=== PATIENT | female | born 1990 | race American Indian/Alaskan Native ===

== ENCOUNTER 2018-07-08 15:46 | Emergency (ER) | payer SELFPAY ==
--- NOTE | 2018-07-08 18:25 | XRay Report ---
FINAL REPORT EXAM: XR SHOULDER 2+V RT HISTORY: PAIN/ SWELLING TECHNIQUE: Three views right shoulder Comparison: None FINDINGS: Normal bony mineralization. No fracture or dislocation. The imaged right lung is clear. Imaged cervical spine is unremarkable. IMPRESSION: No acute fracture or dislocation.
[2018-07-08] MEDS ORDERED: MOTRIN PO ONE (21:57)
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
[2018-07-09 05:10] VITALS: BP 106/75
== END 2018-07-08 22:10 | disposition home or self-care (01) ==
LOC: ED 15:46
DX: S46.911A Strain of unspecified muscle, fascia and tendon at shoulder and upper arm level, right arm, initial encounter (principal); F17.200 Nicotine dependence, unspecified, uncomplicated; Y08.89XA Assault by other specified means, initial encounter; Y93.89 Activity, other specified; Y99.8 Other external cause status; Y92.89 Other specified places as the place of occurrence of the external cause

== ENCOUNTER 2018-07-12 13:06 | Emergency (ER) | payer OTHER ==
[2018-07-12 13:27] VITALS: BP 106/72
[2018-07-12] MEDS ORDERED: MOTRIN PO ONE (16:19)
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
== END 2018-07-12 19:08 | disposition home or self-care (01) ==
LOC: ED 13:06
DX: S33.5XXA Sprain of ligaments of lumbar spine, initial encounter (principal); S16.1XXA Strain of muscle, fascia and tendon at neck level, initial encounter; M25.551 Pain in right hip; F17.200 Nicotine dependence, unspecified, uncomplicated; V89.2XXA Person injured in unspecified motor-vehicle accident, traffic, initial encounter; Y93.89 Activity, other specified; Y92.89 Other specified places as the place of occurrence of the external cause; Y99.8 Other external cause status
CPT/HCPCS: 72100

== ENCOUNTER 2019-07-27 13:05 | Emergency (ER) | payer SELFPAY ==
--- NOTE | 2019-07-27 13:47 | Event Note ---
ED Screening Note Date of service: 07/27/19 Time: 13:42 ED Screening Note: This is a 28 y.o. F. that presents to the ER with pelvic pain, n/v, and constipation for 3 days. Patient went to [facility] and had a normal US yesterday and discharged home. Patient states she can't keep anything down. Reports pain as 10/10, stabbing intensity that is constant. This initial assessment/diagnostic orders/clinical plan/treatment(s) is/are subject to change based on patients health status, clinical progression and re- assessment by fellow clinical providers in the ED. Further treatment and workup at subsequent clinical providers discretion. Patient/guardian urged not to elope from the ED as their condition may be serious if not clinically assessed and managed. Initial orders include: Labs and CT of abdomen and pelvis
[2019-07-27] MEDS ORDERED: ONDANSETRON 4 MG/2 ML INJ IV ONE (14:07)
[2019-07-27] MEDS ORDERED: SODIUM CHLORIDE 0.9% 1000 ML 1,000 ML IV ONE (14:07)
[2019-07-27] MEDS ORDERED: MORPHINE 4 MG/1 ML INJ IV ONE (14:07)
[2019-07-27 14:33] LABS: Basophils # (Auto) 0.1 K/mm3 (0.0-0.1); Basophils % (Auto) 0.6 % (0.0-1.8); Eosinophils % (Auto) 0.1 % (0.0-4.3); Hemoglobin 13.6 gm/dl (10.1-14.3); Lymphocytes # (Auto) 1.4 K/mm3 (1.2-5.4); Lymphocytes % (Auto) 11.5 % (13.4-35.0); Mean Corpuscular HGB Conc 34 % (30-34); Mean Corpuscular Volume 95 fl (79-97); Monocytes # (Auto) 0.9 K/mm3 (0.0-0.8); Monocytes % (Auto) 7.6 % (0.0-7.3); Platelet Count 360 K/mm3 (140-440); Red Blood Count 4.24 M/mm3 (3.65-5.03); Red Cell Distribution Width 13.2 % (13.2-15.2)
[2019-07-27 14:55] LABS: Alanine Aminotransferase 57 units/L (7-56); Albumin 4.6 g/dL (3.9-5); BUN/Creatinine Ratio 13; Blood Urea Nitrogen 9 mg/dL (7-17); Calcium 9.4 mg/dL (8.4-10.2); Hemolysis Index 2
--- NOTE | 2019-07-27 15:41 | Cat Scan Report ---
CT OF THE ABDOMEN AND PELVIS WITH INTRAVENOUS CONTRAST INDICATION / CLINICAL INFORMATION: Lower abdominal pain for 2 days. TECHNIQUE: The patient received 100 cc Omnipaque [address] scans at this location are performed using CT dose reduction for ALARA by means of automated exposure control. COMPARISON: None available. FINDINGS: ABDOMEN: There is a small accessory spleen. The liver, gallbladder, bile ducts, pancreas, adrenal gla nds, kidneys and bowel demonstrate no significant abnormality. No adenopathy is seen. The lung bases are clear. PELVIS: The distal ureters and urinary bladder are normal. The uterus and adnexal regions are unremar kable. A normal retrocecal appendix is present. There is no evidence of diverticulitis. No abnormal m ass or fluid collection is seen. I do not identify a hernia. No acute osseous abnormality is identifi ed. IMPRESSION: No acute abnormality. Signer Name: Alex Rowell MD Signed: 07/27/2019 3:36 PM Workstation Name: [id number]
--- NOTE | 2019-07-27 17:23 | Emergency Department Report ---
ED Abdominal Pain HPI - General Chief Complaint: Nausea/Vomiting/Diarrhea Stated Complaint: LOWER ABD PAIN/VOMTING/NAUSEA Time Seen by Provider: 07/27/19 13:33 Source: patient Mode of arrival: Ambulatory Limitations: No Limitations - History of Present Illness Initial Comments: This is a 28-year-old female nontoxic, well nourished in appearance, no acute signs of distress presents to the ED with c/o of nausea and vomiting and abdominal pain 1 week. Patient describes vomiting as food content and yellow gastric acid. Patient describes abdominal pain as cramping and aching with level of 8/10 diffuse. Patient denies any vaginal discharge. Denies any flank pain. Patient denies chest pain, short of breath, fever, chills, headache, stiff neck, numbness or tingling. Patient denies any diarrhea or constipation. Patient denies any recent travels. Patient denies any allergies. Patient denies any PMH. MD Complaint: abdominal pain -: week(s) (1) Location: diffuse Radiation: none Migration to: no migration Severity: mild Severity scale (0 -10): 8 Quality: cramping, aching Consistency: constant Improves With: nothing Worsens With: nothing Associated Symptoms: nausea, vomiting. denies: diarrhea, fever, chills, constipation, dysuria, hematemesis, hematochezia, melena, hematuria, anorexia, syncope - Related Data Previous Rx's Medication Instructions Recorded Last Taken Type Acetaminophen/Codeine [Tylenol 1 tab PO Q6H PRN #12 tab 07/08/18 Unknown Rx /Codeine # 3 tab] Ibuprofen [Motrin] 600 mg PO Q8H PRN #30 tablet 07/08/18 Unknown Rx Cyclobenzaprine [Flexeril 10mg] 10 mg PO Q12H PRN #14 tablet 07/12/18 Unknown Rx Ibuprofen [Motrin] 600 mg PO Q8H PRN #12 tablet 07/12/18 Unknown Rx Acetaminophen/Codeine [Tylenol 1 tab PO Q6H PRN #12 tab 07/27/19 Unknown Rx /Codeine # 3 tab] Ondansetron [Zofran Odt] 4 mg PO Q8HR PRN #20 tab.rapdis 07/27/19 Unknown Rx Allergies Allergy/AdvReac Type Severity Reaction Status Date / Time No Known Allergies Allergy Verified 07/12/18 13:28 ED Review of Systems ROS: Stated complaint: LOWER ABD PAIN/VOMTING/NAUSEA Other details as noted in HPI Constitutional: denies: chills, fever Eyes: denies: eye pain, eye discharge, vision change ENT: denies: ear pain, throat pain Respiratory: denies: cough, shortness of breath, wheezing Cardiovascular: denies: chest pain, palpitations Endocrine: no symptoms reported Gastrointestinal: abdominal pain, nausea, vomiting. denies: diarrhea Genitourinary: denies: urgency, dysuria, discharge Musculoskeletal: denies: back pain, joint swelling, arthralgia Skin: denies: rash, lesions Neurological: denies: headache, weakness, paresthesias Psychiatric: denies: anxiety, depression Hematological/Lymphatic: denies: easy bleeding, easy bruising ED Past Medical Hx - Past Medical History Previous Medical History?: No - Surgical History Past Surgical History?: No - Social History Smoking Status: Current Every Day Smoker Substance Use Type: Alcohol, Marijuana - Medications Home Medications: Home Medications Medication Instructions Recorded Confirmed Last Taken Type Acetaminophen/Codeine [Tylenol 1 tab PO Q6H PRN #12 tab 07/08/18 Unknown Rx /Codeine # 3 tab] Ibuprofen [Motrin] 600 mg PO Q8H PRN #30 tablet 07/08/18 Unknown Rx Cyclobenzaprine [Flexeril 10mg] 10 mg PO Q12H PRN #14 tablet 07/12/18 Unknown Rx Ibuprofen [Motrin] 600 mg PO Q8H PRN #12 tablet 07/12/18 Unknown Rx Acetaminophen/Codeine [Tylenol 1 tab PO Q6H PRN #12 tab 07/27/19 Unknown Rx /Codeine # 3 tab] Ondansetron [Zofran Odt] 4 mg PO Q8HR PRN #20 tab.rapdis 07/27/19 Unknown Rx ED Physical Exam - General Limitations: No Limitations General appearance: alert, in no apparent distress - Head Head exam: Present: atraumatic, normocephalic - Eye Eye exam: Present: normal appearance - Neck Neck exam: Present: normal inspection, full ROM. Absent: tenderness, mening ismus, lymphadenopathy - Respiratory Respiratory exam: Present: normal lung sounds bilaterally. Absent: respiratory distress, wheezes, rales, rhonchi, stridor, chest wall tenderness, accessory muscle use, decreased breath sounds, prolonged expiratory - Cardiovascular Cardiovascular Exam: Present: regular rate, normal rhythm, normal heart sounds. Absent: bradycardia, tachycardia, irregular rhythm, systolic murmur, diastolic murmur, rubs, gallop - GI/Abdominal GI/Abdominal exam: Present: soft, tenderness (diffuse), normal bowel sounds. Absent: distended, guarding, rebound, rigid, diminished bowel sounds - Extremities Exam Extremities exam: Present: normal inspection, full ROM - Back Exam Back exam: Present: normal inspection, full ROM. Absent: tenderness, CVA tenderness (R), CVA tenderness (L), muscle spasm, paraspinal tenderness, vertebral tenderness, rash noted - Neurological Exam Neurological exam: Present: alert, oriented X3, normal gait - Psychiatric Psychiatric exam: Present: normal affect, normal mood - Skin Skin exam: Present: warm, dry, intact, normal color. Absent: rash ED Course Vital Signs 07/27/19 07/27/19 13:06 14:42 Temperature 98.6 F Pulse Rate 84 Respiratory 18 18 Rate Blood Pressure 126/60 O2 Sat by Pulse 99 Oximetry - Reevaluation(s) Reevaluation #1: 07/27/19 17:21 Patient is speaking in full sentences with no signs of distress noted. ED Medical Decision Making - Lab Data Result diagrams: 07/27/19 13:59 07/27/19 13:59 - Medical Decision Making This is a 28-year-old female that presents with abdominal pain and nausea vomiting. Patient is stable and was examined by me. There is no abdominal tenderness. Negative signs of symptoms of appendicitis. Labs obtained. UA obtained. CT of abdomen obtained and dictated by the radiologist. Patient is notified of the report with no questions noted by the patient. Vital signs are stable prior to discharge. Patient received medical treatment in the ED which patient stated symptoms has resovled and subsided. Was instructed note to operate any machinery due to possible drowsiness and stated someone will drive the patient home. A by mouth challenge has been obtained and patient tolerated well with no nausea vomiting. Patient was also instructed to Follow-up with a primary care doctor in 3-5 days or if symptoms worsen and continue return to emergency room as soon as possible. At time of discharge, the patient does not seem toxic or ill in appearance. No acute signs of distress noted. Patient agrees to discharge treatment plan of care. No further questions noted by the patient. Critical care attestation.: If time is entered above; I have spent that time in minutes in the direct care of this critically ill patient, excluding procedure time. ED Disposition Clinical Impression: Abdominal pain, Nausea & vomiting Disposition: DC-01 TO HOME OR SELFCARE Is pt being admited?: No Does the pt Need Aspirin: No Condition: Stable Instructions: Acetaminophen/Codeine (By mouth), Acute Nausea and Vomiting (ED), Acute Abdominal Pain (ED) Additional Instructions: Follow-up with a primary care doctor in 3-5 days or if symptoms worsen and continue return to emergency room as soon as possible. Do not operate any machinery while taking Tylenol with codeine as this may cause drowsiness. Prescriptions: Acetaminophen/Codeine [Tylenol /Codeine # 3 tab] 1 tab PO Q6H PRN #12 tab PRN Reason: Pain , Severe (7-10) Ondansetron [Zofran Odt] 4 mg PO Q8HR PRN #20 tab.rapdis PRN Reason: Pain , Severe (7-10) Referrals: PRIMARY MD ASHLEE [Primary Care Provider] - 3-5 Days RAFA ZIEGLER MD [Staff Physician] - 3-5 Days [facility] [Outside] - 3-5 Days [facility] [Outside] - 3-5 Days Forms: Work/School Release Form(ED)
[2019-07-27 17:41] LABS: Bilirubin,Urine NEG (Negative); Blood,Urine LG (Negative); Color,Urine Red (Yellow); Urobilinogen,Urine < 2.0 mg/dL (<2.0)
[2019-07-27 17:42] LABS: RBC,Urine > 182.0 /HPF (0.0-6.0)
[2019-07-27 18:08] VITALS: BP 132/80
== END 2019-07-27 18:08 | disposition home or self-care (01) ==
LOC: ED 13:05
DX: R11.2 Nausea with vomiting, unspecified (principal); R10.84 Generalized abdominal pain; F17.200 Nicotine dependence, unspecified, uncomplicated; F12.10 Cannabis abuse, uncomplicated; Z79.1 Long term (current) use of non-steroidal anti-inflammatories (NSAID); Z79.899 Other long term (current) drug therapy
CPT/HCPCS: 36415; 74177; 80053; 81001; 83690; 84703; 85025; 96361; 96374; 96375; 99284; J2270; J2405; J7030; Q9967

== ENCOUNTER 2019-07-28 10:18 | Emergency (ER) | payer SELFPAY ==
--- NOTE | 2019-07-28 12:53 | Emergency Department Report ---
Vomiting/Diarrhea - [facility] Chief Complaint: Abdominal Pain Stated Complaint: VOMIT/STOMACH PAIN/DIZZY Time Seen by Provider: 07/28/19 12:45 Severity: mild Nausea/Vomiting Severity: Mild ED Review of Systems ROS: Stated complaint: VOMIT/STOMACH PAIN/DIZZY Other details as noted in HPI ED Past Medical Hx - Past Medical History Previous Medical History?: No - Surgical History Past Surgical History?: No - Social History Smoking Status: Never Smoker Substance Use Type: None - Medications Home Medications: Home Medications Medication Instructions Recorded Confirmed Last Taken Type Acetaminophen/Codeine [Tylenol 1 tab PO Q6H PRN #12 tab 07/08/18 Unknown Rx /Codeine # 3 tab] Ibuprofen [Motrin] 600 mg PO Q8H PRN #30 tablet 07/08/18 Unknown Rx Cyclobenzaprine [Flexeril 10mg] 10 mg PO Q12H PRN #14 tablet 07/12/18 Unknown Rx Ibuprofen [Motrin] 600 mg PO Q8H PRN #12 tablet 07/12/18 Unknown Rx Acetaminophen/Codeine [Tylenol 1 tab PO Q6H PRN #12 tab 07/27/19 Unknown Rx /Codeine # 3 tab] Ondansetron [Zofran Odt] 4 mg PO Q8HR PRN #20 tab.rapdis 07/27/19 Unknown Rx Vomiting Diarrhea Exam - Exam General: Vital signs noted. No distress. Alert and acting appropriately. Neurologic: Alert and oriented, no deficits. Musculoskeletal: Unremarkable. ED Course Vital Signs 07/28/19 07/28/19 10:32 12:05 Temperature 98.8 F 98.8 F Pulse Rate 69 69 Respiratory 22 22 Rate Blood Pressure 123/76 Blood Pressure 123/76 [Right] O2 Sat by Pulse 100 100 Oximetry Critical care attestation.: If time is entered above; I have spent that time in minutes in the direct care of this critically ill patient, excluding procedure time. ED Disposition Condition: Stable Instructions: Abdominal Pain (ED) Referrals: PRIMARY CARE, [Primary Care Provider] - 3-5 Days
[2019-07-28] MEDS ORDERED: HALOPERIDOL LACTATE 5 MG/1 ML INJ IM ONE (12:57)
--- NOTE | 2019-07-28 12:59 | Emergency Department Report ---
ED Abdominal Pain HPI - General Chief Complaint: Abdominal Pain Stated Complaint: VOMIT/STOMACH PAIN/DIZZY Time Seen by Provider: 07/28/19 12:45 Source: patient Mode of arrival: Ambulatory Limitations: No Limitations - History of Present Illness Initial Comments: This 28-year-old female with a history of PCOS as presents to ED complaining of abdominal pain with nausea vomiting and for the past 4 days. Patient was revealed related here yesterday and had a full workup with normal findings. Patient was also evaluated that day before at [facility] with normal findings.Patient states that pain is localized to her lower abdominal and upper abdominal region. Patient is complaining of nausea vomiting for the past couple of days and inability to keep down food. She denies diarrhea, fevers, chills, any urinary symptoms. Patient isn't is some distress crying stating that she is having abdominal pain. MD Complaint: abdominal pain Severity scale (0 -10): 10 - Related Data Previous Rx's Medication Instructions Recorded Last Taken Type Acetaminophen/Codeine [Tylenol 1 tab PO Q6H PRN #12 tab 07/08/18 Unknown Rx /Codeine # 3 tab] Ibuprofen [Motrin] 600 mg PO Q8H PRN #30 tablet 07/08/18 Unknown Rx Cyclobenzaprine [Flexeril 10mg] 10 mg PO Q12H PRN #14 tablet 07/12/18 Unknown Rx Ibuprofen [Motrin] 600 mg PO Q8H PRN #12 tablet 07/12/18 Unknown Rx Acetaminophen/Codeine [Tylenol 1 tab PO Q6H PRN #12 tab 07/27/19 Unknown Rx /Codeine # 3 tab] Ondansetron [Zofran Odt] 4 mg PO Q8HR PRN #20 tab.rapdis 07/27/19 Unknown Rx traMADol [Ultram 50 MG tab] 50 mg PO Q6HR PRN #15 tablet 07/28/19 Unknown Rx Allergies Allergy/AdvReac Type Severity Reaction Status Date / Time No Known Allergies Allergy Verified 07/12/18 13:28 ED Review of Systems ROS: Stated complaint: VOMIT/STOMACH PAIN/DIZZY Other details as noted in HPI Comment: All other systems reviewed and negative ED Past Medical Hx - Past Medical History Previous Medical History?: No - Surgical History Past Surgical History?: No - Social History Smoking Status: Never Smoker Substance Use Type: None - Medications Home Medications: Home Medications Medication Instructions Recorded Confirmed Last Taken Type Acetaminophen/Codeine [Tylenol 1 tab PO Q6H PRN #12 tab 07/08/18 Unknown Rx /Codeine # 3 tab] Ibuprofen [Motrin] 600 mg PO Q8H PRN #30 tablet 07/08/18 Unknown Rx Cyclobenzaprine [Flexeril 10mg] 10 mg PO Q12H PRN #14 tablet 07/12/18 Unknown Rx Ibuprofen [Motrin] 600 mg PO Q8H PRN #12 tablet 07/12/18 Unknown Rx Acetaminophen/Codeine [Tylenol 1 tab PO Q6H PRN #12 tab 07/27/19 Unknown Rx /Codeine # 3 tab] Ondansetron [Zofran Odt] 4 mg PO Q8HR PRN #20 tab.rapdis 07/27/19 Unknown Rx traMADol [Ultram 50 MG tab] 50 mg PO Q6HR PRN #15 tablet 07/28/19 Unknown Rx ED Physical Exam - General Limitations: No Limitations General appearance: alert, in no apparent distress - Head Head exam: Present: atraumatic, normocephalic - Eye Eye exam: Present: normal appearance - ENT ENT exam: Present: mucous membranes moist - Neck Neck exam: Present: normal inspection - Respiratory Respiratory exam: Present: normal lung sounds bilaterally. Absent: respiratory distress - Cardiovascular Cardiovascular Exam: Present: regular rate, normal rhythm. Absent: systolic murmur, diastolic murmur, rubs, gallop - GI/Abdominal GI/Abdominal exam: Present: soft, normal bowel sounds. Absent: distended, tenderness, guarding, mass - Extremities Exam Extremities exam: Present: normal inspection - Back Exam Back exam: Present: normal inspection - Neurological Exam Neurological exam: Present: alert, oriented X3 - Psychiatric Psychiatric exam: Present: normal affect, normal mood - Skin Skin exam: Present: warm, dry, intact, normal color. Absent: rash ED Course Vital Signs 07/28/19 07/28/19 07/28/19 10:32 12:05 16:29 Temperature 98.8 F 98.8 F Pulse Rate 69 69 72 Respiratory 22 22 18 Rate Blood Pressure 123/76 Blood Pressure 123/76 120/70 [Right] O2 Sat by Pulse 100 100 100 Oximetry ED Medical Decision Making - Lab Data Result diagrams: 07/28/19 15:37 07/28/19 13:56 - Medical Decision Making 28-year-old female presents with abdominal pain most likely from PCOS or gastroenteritis. CBC, CMP ordered today, all labs within normal limits. CT abdomen and pelvis from yesterday was normal. Patient received 1 L normal saline, Rocephin due to result of urinary findings from yesterday. She also received 5 mg of Haldol IM as well as Reglan for pain and nausea. Patient reports feeling much better prior to discharge. Discussed need to follow-up with head sugar reprocess operator. Vital signs are normal patient is in no acute distress. Critical care attestation.: If time is entered above; I have spent that time in minutes in the direct care of this critically ill patient, excluding procedure time. ED Disposition Clinical Impression: Abdominal pain, History of PCOS Disposition: TO HOME OR SELFCARE Is pt being admited?: No Does the pt Need Aspirin: No Condition: Stable Instructions: Polycystic Ovarian Syndrome (ED), Chronic Pelvic Pain in Women (ED), Abdominal Pain (ED) Additional Instructions: Make sure to follow up with the head sugar reprocess operator as discussed. Take all your medications as you've been prescribed. If you have any worsening symptoms or develop new symptoms please return to ED immediately. Prescriptions: traMADol [Ultram 50 MG tab] 50 mg PO Q6HR PRN #15 tablet PRN Reason: Pain Referrals: PRIMARY CARE, [Primary Care Provider] - 3-5 Days [facility] [Provider Group] - 3-5 Days [facility] [Provider Group] - 3-5 Days [facility] [Provider Group] - 3-5 Days Forms: Accompanied Note, Work/School Release Form(ED) Time of Disposition: 16:13
[2019-07-28] MEDS ORDERED: SODIUM CHLORIDE 0.9% 1000 ML 1,000 ML IV ONE (13:01)
[2019-07-28] MEDS ORDERED: cefTRIAXone/NS 1 GM/50 ML 0 GM/0 ML BAG IV ONE (14:28)
[2019-07-28] MEDS ORDERED: METOCLOPRAMIDE 10 MG/2 ML INJ ONE (14:54)
[2019-07-28 14:55] LABS: Alanine Aminotransferase 58 units/L (7-56); Albumin 4.1 g/dL (3.9-5); BUN/Creatinine Ratio 10; Blood Urea Nitrogen 8 mg/dL (7-17); Calcium 8.6 mg/dL (8.4-10.2); Hemolysis Index 30
[2019-07-28] MEDS ORDERED: METOCLOPRAMIDE 10 MG/2 ML INJ IV ONE (14:58)
[2019-07-28 15:49] LABS: Hematocrit 37.8 % (30.3-42.9); Mean Corpuscular HGB Conc 34 % (30-34); Mean Corpuscular Volume 93 fl (79-97); Platelet Count 342 K/mm3 (140-440); Red Blood Count 4.05 M/mm3 (3.65-5.03); Red Cell Distribution Width 13.2 % (13.2-15.2)
[2019-07-28 16:30] VITALS: BP 120/70
== END 2019-07-28 16:29 | disposition home or self-care (01) ==
LOC: ED 10:18
DX: R10.84 Generalized abdominal pain (principal); R11.2 Nausea with vomiting, unspecified; Z79.899 Other long term (current) drug therapy
CPT/HCPCS: 36415; 80053; 85025; 96365; 96367; 96372; 96375; 99283; J0696; J1630; J2765; J7030

== ENCOUNTER 2019-07-30 05:26 | Emergency (ER) | payer SELFPAY ==
[2019-07-30 06:00] LABS: Basophils # (Auto) 0.1 K/mm3 (0.0-0.1); Basophils % (Auto) 0.8 % (0.0-1.8); Eosinophils % (Auto) 0.1 % (0.0-4.3); Hematocrit 38.5 % (30.3-42.9); Hemoglobin 13.1 gm/dl (10.1-14.3); Lymphocytes # (Auto) 0.9 K/mm3 (1.2-5.4); Lymphocytes % (Auto) 8.5 % (13.4-35.0); Mean Corpuscular HGB Conc 34 % (30-34); Mean Corpuscular Volume 93 fl (79-97); Monocytes # (Auto) 0.5 K/mm3 (0.0-0.8); Monocytes % (Auto) 4.3 % (0.0-7.3); Platelet Count 361 K/mm3 (140-440); Red Blood Count 4.13 M/mm3 (3.65-5.03); Red Cell Distribution Width 12.8 % (13.2-15.2)
[2019-07-30 06:16] LABS: Alanine Aminotransferase 48 units/L (7-56); Albumin 4.5 g/dL (3.9-5); BUN/Creatinine Ratio 9; Blood Urea Nitrogen 6 mg/dL (7-17); Calcium 8.7 mg/dL (8.4-10.2); Hemolysis Index 0
[2019-07-30] MEDS ORDERED: SODIUM CHLORIDE 0.9% 1000 ML 1,000 ML IV ONE (07:32)
[2019-07-30] MEDS ORDERED: ONDANSETRON 4 MG/2 ML INJ IV ONE (07:32)
--- NOTE | 2019-07-30 07:37 | Emergency Department Report ---
Vomiting/Diarrhea - HPI Chief Complaint: Nausea/Vomiting/Diarrhea Stated Complaint: CHEST PAIN Time Seen by Provider: 07/30/19 07:04 Duration: 1 Day Severity: moderate Nausea/Vomiting Severity: Moderate Diarrhea Severity: None Pain Location: Epigastric Pain Severity: Moderate Symptoms: Yes Able to Tolerate Fluids, No Watery Diarrhea, No Bloody diarrhea, No Fever, No Recent Unusual Foods, No Recent Untreated Water, No Recent use of Antibiotics, No Family w/ Similar Symptoms, No Contacts w/ Similar Symptoms, No Rash, No Hematuria, No Recent URI Symptoms Other History: This is an 28-year-old female who presents to the emergency room with nausea, vomiting, and chest pain since last night. Patient states she started vomiting with a burning sensation to her epigastric chest around 2200. Patient reports a history of intermittent vomiting for the p ast 2 weeks. She denies recent travel, unusual foods, abdominal pain, fever, cough, shortness of breath, diarrhea, or tarry stools. ED Review of Systems ROS: Stated complaint: CHEST PAIN Other details as noted in HPI Constitutional: denies: chills, fever ENT: denies: ear pain, throat pain Respiratory: denies: cough, shortness of breath, wheezing Cardiovascular: chest pain. denies: palpitations Gastrointestinal: nausea, vomiting. denies: abdominal pain, diarrhea Skin: denies: rash, lesions Neurological: denies: headache, weakness, paresthesias Psychiatric: denies: anxiety, depression ED Past Medical Hx - Past Medical History Previous Medical History?: No - Surgical History Past Surgical History?: No - Social History Smoking Status: Current Every Day Smoker Substance Use Type: None - Medications Home Medications: Home Medications Medication Instructions Recorded Confirmed Last Taken Type Acetaminophen/Codeine [Tylenol 1 tab PO Q6H PRN #12 tab 07/08/18 Unknown Rx /Codeine # 3 tab] Ibuprofen [Motrin] 600 mg PO Q8H PRN #30 tablet 07/08/18 Unknown Rx Cyclobenzaprine [Flexeril 10mg] 10 mg PO Q12H PRN #14 tablet 07/12/18 Unknown Rx Ibuprofen [Motrin] 600 mg PO Q8H PRN #12 tablet 07/12/18 Unknown Rx Acetaminophen/Codeine [Tylenol 1 tab PO Q6H PRN #12 tab 07/27/19 Unknown Rx /Codeine # 3 tab] Ondansetron [Zofran Odt] 4 mg PO Q8HR PRN #20 tab.rapdis 07/27/19 Unknown Rx traMADol [Ultram 50 MG tab] 50 mg PO Q6HR PRN #15 tablet 07/28/19 Unknown Rx Famotidine [Pepcid] 40 mg PO QHS #30 tablet 07/30/19 Unknown Rx Ondansetron [Zofran Odt] 4 mg PO Q8HR PRN #15 tab.rapdis 07/30/19 Unknown Rx Vomiting Diarrhea Exam - Exam General: Vital signs noted. No distress. Alert and acting appropriately. HEENT: Yes Moist Mucous Membranes, No Pharyngeal Erythema, No Pharyngeal Exudates, No Rhinorrhea, No Conjuctival Injection, No Frontal Tenderness, No Maxillary Tenderness Neck: No Adenopathy, No Rigidity Lungs: Yes Clear Lung Sounds, Yes Good Air Exchange, Yes Use of Accessory Muscles, No Wheezes, No Stridor, No Cough, No Nasal Flaring, No Retractions Heart exam: Regular: Yes, Murmur: No, Tachycardia: No Abdomen: Tenderness: No, Peritoneal Signs: No, Distention: No, Hyperactive Bowel sounds: No Skin exam: Rash: No, Edema: No, Normal turgor: Yes Neurologic: Alert and oriented, no deficits. Musculoskeletal: Unremarkable. ED Course Vital Signs 07/30/19 05:33 Temperature 98.6 F Pulse Rate 63 Respiratory 18 Rate Blood Pressure 140/71 [Right] O2 Sat by Pulse 99 Oximetry ED Medical Decision Making - Lab Data Result diagrams: 07/30/19 05:41 07/30/19 05:41 Lab Results 07/30/19 07/30/19 07/30/19 Range/Units 05:41 05:41 05:41 WBC 10.9 (4.5-11.0) K/mm3 RBC 4.13 (3.65-5.03) M/mm3 Hgb 13.1 (10.1-14.3) gm/dl Hct 38.5 (30.3-42.9) % MCV 93 (79-97) fl MCH 32 (28-32) pg MCHC 34 (30-34) % RDW 12.8 L (13.2-15.2) % Plt Count 361 (140-440) K/mm3 Lymph % (Auto) 8.5 L (13.4-35.0) % [place] % (Auto) 4.3 (0.0-7.3) % Eos % (Auto) 0.1 (0.0-4.3) % Baso % (Auto) 0.8 (0.0-1.8) % Lymph # 0.9 L (1.2-5.4) K/mm3 [place] # 0.5 (0.0-0.8) K/mm3 Eos # 0.0 (0.0-0.4) K/mm3 Baso # 0.1 (0.0-0.1) K/mm3 Seg Neutrophils % 86.3 H (40.0-70.0) % Seg Neutrophils # 9.4 H (1.8-7.7) K/mm3 Sodium 139 (137-145) mmol/L Potassium 3.4 L (3.6-5.0) mmol/L Chloride 99.5 (98-107) mmol/L Carbon Dioxide 23 (22-30) mmol/L Anion Gap 20 mmol/L BUN 6 L (7-17) mg/dL Creatinine 0.7 (0.7-1.2) mg/dL Estimated GFR > 60 ml/min BUN/Creatinine Ratio 9 % Glucose 113 H (65-100) mg/dL Calcium 8.7 (8.4-10.2) mg/dL Total Bilirubin 0.30 (0.1-1.2) mg/dL AST 27 (5-40) units/L ALT 48 (7-56) units/L Alkaline Phosphatase 48 (35-129) units/L Total Protein 7.6 (6.3-8.2) g/dL Albumin 4.5 (3.9-5) g/dL Albumin/Globulin Ratio 1.5 % HCG, Qual Negative (Negative) Urine Color (Yellow) Urine Turbidity (Clear) Urine pH (5.0-7.0) Ur Specific [place] (1.003-1.030) Urine Protein (Negative) mg/dL Urine Glucose (UA) (Negative) mg/dL Urine Ketones (Negative) mg/dL Urine Blood (Negative) Urine Nitrite (Negative) Urine Bilirubin (Negative) Urine Urobilinogen (<2.0) mg/dL Ur Leukocyte Esterase (Negative) Urine WBC (Auto) (0.0-6.0) /HPF Urine RBC (Auto) (0.0-6.0) /HPF U Epithel Cells (Auto) (0-13.0) /HPF Urine Mucus /HPF 07/30/19 Range/Units 08:42 WBC (4.5-11.0) K/mm3 RBC (3.65-5.03) M/mm3 Hgb (10.1-14.3) gm/dl Hct (30.3-42.9) % MCV (79-97) fl MCH (28-32) pg MCHC (30-34) % RDW (13.2-15.2) % Plt Count (140-440) K/mm3 Lymph % (Auto) (13.4-35.0) % [place] % (Auto) (0.0-7.3) % Eos % (Auto) (0.0-4.3) % Baso % (Auto) (0.0-1.8) % Lymph # (1.2-5.4) K/mm3 [place] # (0.0-0.8) K/mm3 Eos # (0.0-0.4) K/mm3 Baso # (0.0-0.1) K/mm3 Seg Neutrophils % (40.0-70.0) % Seg Neutrophils # (1.8-7.7) K/mm3 Sodium (137-145) mmol/L Potassium (3.6-5.0) mmol/L Chloride (98-107) mmol/L Carbon Dioxide (22-30) mmol/L Anion Gap mmol/L BUN (7-17) mg/dL Creatinine (0.7-1.2) mg/dL Estimated GFR ml/min BUN/Creatinine Ratio % Glucose (65-100) mg/dL Calcium (8.4-10.2) mg/dL Total Bilirubin (0.1-1.2) mg/dL AST (5-40) units/L ALT (7-56) units/L Alkaline Phosphatase (35-129) units/L Total Protein (6.3-8.2) g/dL Albumin (3.9-5) g/dL Albumin/Globulin Ratio % HCG, Qual (Negative) Urine Color Yellow (Yellow) Urine Turbidity Slightly-cloudy (Clear) Urine pH 6.0 (5.0-7.0) Ur Specific [place] 1.021 (1.003-1.030) Urine Protein 100 mg/dl (Negative) mg/dL Urine Glucose (UA) Neg (Negative) mg/dL Urine Ketones 80 (Negative) mg/dL Urine Blood Lg (Negative) Urine Nitrite Neg (Negative) Urine Bilirubin Neg (Negative) Urine Urobilinogen 4.0 (<2.0) mg/dL Ur Leukocyte Esterase Sm (Negative) Urine WBC (Auto) 11.0 H (0.0-6.0) /HPF Urine RBC (Auto) > 182.0 (0.0-6.0) /HPF U Epithel Cells (Auto) 3.0 (0-13.0) /HPF Urine Mucus 3+ /HPF - EKG Data -: No EKG Interpreted by Me (EKG interpreted by attending) EKG shows normal: sinus rhythm ( no STEMI) Rate: normal - Radiology Data Radiology results: report reviewed LIMITED RUQ ABDOMINAL ULTRASOUND INDICATION: vomiting, epigastric pain, r/o cholelithiasis. COMPARISON: No relevant prior imaging study available. FINDINGS: Pancreas: Visualized portions show no significant abnormality. Abdominal Aorta: No significant abnormality. IVC: No significant abnormality. Liver: The liver measures 14.1 cm in length. No significant abnormality. Normal hepatopedal blood flow in the main portal vein. Gallbladder: No significant abnormality. Bile ducts: No significant abnormality. Common bile duct measures 3.1 mm. Right kidney: No significant abnormality visualized.. Free fluid: None. Additional Findings: None. IMPRESSION: Normal exam. - Medical Decision Making Patient was examined by me. Patient is nontoxic appearing and stable. Vitals are normal. Obtained labs and limited abdominal ultrasound. All labs are unremarkable. Ultrasound negative for acute findings. Given 1 L normal saline bolus, Zofran, and Pepcid. Patient reports feeling better. Patient seen in this emergency room 2 days ago with a negative CT of abdomen and pelvis. Patient will be treated for gastroenteritis. Start Zofran and Pepcid. Referral to gastroenterology for continued care or return to the ER with worsening symptoms. Patient discharged home in stable condition. Critical care attestation.: If time is entered above; I have spent that time in minutes in the direct care of this critically ill patient, excluding procedure time. ED Disposition Clinical Impression: Gastroenteritis, Nausea and vomiting in adult Disposition: DC-01 TO HOME OR SELFCARE Is pt being admited?: No Does the pt Need Aspirin: No Condition: Stable Instructions: Gastroenteritis (ED), Acute Nausea and Vomiting (ED) Additional Instructions: Frequent hand washing is important to reduce spread. Prompt disinfection of contaminated surfaces with household chlorine bleach- based perioperative manager and washing of soiled clothing and bedding should be advised. If food or water is thought to be contaminated, it should be avoided. Increase fluid intake. Drinks high in sugars such as carbonated soft drinks, fruit juice, and highly sugared liquids should be avoided. Prescriptions: Famotidine [Pepcid] 40 mg PO QHS #30 tablet Ondansetron [Zofran Odt] 4 mg PO Q8HR PRN #15 tab.rapdis PRN Reason: Nausea Referrals: [facility] [Provider Group] - 3-5 Days [facility] [place][Note 3] [Outside] - 3-5 Days [facility] [Outside] - 3-5 Days [facility] [Outside] - 3-5 Days Forms: Work/School Release Form(ED) Time of Disposition: 11:03
[2019-07-30] MEDS ORDERED: FAMOTIDINE 20 MG/2 ML INJ IV ONE (09:00)
[2019-07-30 09:08] LABS: Bilirubin,Urine NEG (Negative); Blood,Urine LG (Negative); Color,Urine Yellow (Yellow); Mucus,Urine 3+ /HPF
[2019-07-30 09:18] LABS: RBC,Urine > 182.0 /HPF (0.0-6.0)
--- NOTE | 2019-07-30 09:59 | Ultrasound Report ---
LIMITED RUQ ABDOMINAL ULTRASOUND INDICATION: vomiting, epigastric pain, r/o cholelithiasis. COMPARISON: No relevant prior imaging study available. FINDINGS: Pancreas: Visualized portions show no significant abnormality. Abdominal Aorta: No significant abnormality. IVC: No significant abnormality. Liver: The liver measures 14.1 cm in length. No significant abnormality. Normal hepatopedal blood fl ow in the main portal vein. Gallbladder: No significant abnormality. Bile ducts: No significant abnormality. Common bile duct measures 3.1 mm. Right kidney: No significant abnormality visualized.. Free fluid: None. Additional Findings: None. IMPRESSION: Normal exam. Signer Name: Gopal Lynch Jr, MD Signed: 07/30/2019 9:55 AM Workstation Name: [id number]
[2019-07-30] MEDS ORDERED: POTASSIUM CHLORIDE ER 20 MEQ TAB PO ONE (10:13)
[2019-07-30 10:39] VITALS: BP 123/63
== END 2019-07-30 11:21 | disposition home or self-care (01) ==
LOC: ED 05:26
DX: K21.9 Gastro-esophageal reflux disease without esophagitis (principal); F17.200 Nicotine dependence, unspecified, uncomplicated; Z79.899 Other long term (current) drug therapy
CPT/HCPCS: 36415; 76705; 80053; 81001; 84703; 85025; 87086; 93005; 93010; 96361; 96374; 96375; 99284; J2405; J7030